=== PATIENT | male | born 1980 | race Hispanic/Latino ===

== ENCOUNTER 2019-12-16 20:14 | Emergency (ER) | payer SELFPAY ==
[~2019-12-16] VITALS: Ht 157.5 cm; Wt 74.8 kg
[2019-12-16 20:15] VITALS: BP 142/93
[2019-12-16] MEDS ORDERED: NS 1000ML 1,000 ML IV STA (20:31)
[2019-12-16] MEDS ORDERED: NS 1000ML 1,000 ML ONE (20:34)
--- NOTE | 2019-12-16 20:35 | ER.PDOC ---
General Chief Complaint: General Complaint Stated Complaint: DEHYDRATION TRAVEL OUT OF US: No Time seen by MD: 20:32 Source: patient Exam Limitations: no limitations History of Present Illness Initial Comments Generalized muscle cramps, patient has been working outside all day and barely drank water. No chest pain or SOB. Severity: moderate Associated Symptoms: denies symptoms Allergies: Coded Allergies: No Known Allergies (Unverified , 12/16/19) Past Medical History Medical History: no pertinent history Surgical History: no surgical history Social History Alcohol Use: none Drug Use: none Review of Systems Constitutional: no symptoms reported Respiratory: no symptoms reported Cardiovascular: no symptoms reported Gastrointestinal: no symptoms reported Musculoskeletal: see HPI All Other Systems: Reviewed and Negative Physical Exam General Appearance: No Apparent Distress, WD/WN Neck: Non-Tender, Full Range of Motion, Supple, Normal Inspection Respiratory: chest non-tender, lungs clear, normal breath sounds, no respiratory distress CVS: reg rate & rhythm, no murmur, no gallop, pulses nml, nml capillary refill Gastrointestinal: Normal Bowel Sounds, No Organomegaly, No Pulsatile Mass, Non Tender Back: Normal Inspection Extremities: Normal Range of Motion, Normal Inspection 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 Skin: Normal Color Results/Orders Results/Orders Orders - DOMINIK PATRICK MD Cbc With Auto Diff (12/16/19 20:29) Comprehensive Metabolic Panel (12/16/19 20:29) Creatine Kinase (12/16/19 20:29) 0.9 % Sodium Chloride (Ns 1000ml) (12/16/19 20:31) 0.9 % Sodium Chloride (Ns 1000ml) (12/16/19 20:34) Vital Signs Date Time Temp Pulse Resp B/P (MAP) Pulse Ox O2 Delivery O2 Flow Rate FiO2 12/16/19 20:15 98.7 84 16 94 12/16/19 20:15 98.7 84 16 142/93 (109) 94 Room Air 12/16/19 20:15 98.7 84 16 Administered Medications Medications (Trade) Dose Ordered Sig/Mouna Route PRN Reason Start Time Stop Time Status Last Admin Dose Admin Sodium Chloride 1,000 ml @ 1,200 mls/hr Q50M STAT IV 12/16/19 20:31 12/16/19 21:20 DC 12/16/19 20:45 1,200 MLS/HR Laboratory Tests Test 12/16/19 20:59 White Blood Count 11.4 10^3/uL (4.5-11.0) H Red Blood Count 4.90 10^6/uL (4.50-5.90) Hemoglobin 15.4 g/dL (13.9-16.3) Hematocrit 44.0 % (37.0-53.0) Mean Corpuscular Volume 89.8 fL (78-100) Mean Corpuscular Hemoglobin 31.4 pg (26-34) Mean Corpuscular Hemoglobin Concent 35.0 g/dL (33-36.5) Red Cell Distribution Width 12.3 % (11.5-14.5) Platelet Count 199 10^3/uL (150-400) Mean Platelet Volume 9.0 fL (7.8-11.0) Neutrophils (%) (Auto) 82.9 % (41.0-85.0) Lymphocytes (%) (Auto) 10.1 % (24.0-44.0) L Monocytes (%) (Auto) 6.3 % (5.0-12.0) Neutrophils # (Auto) 9.5 10^3/uL (1.8-7.7) H Lymphocytes # (Auto) 1.15 10^3/uL1 (1.0-4.8) Monocytes # (Auto) 0.7 10^3/uL (0.3-0.8) Absolute Immature Granulocyte (auto 0.02 10^3 u/L (0-2) Absolute Eosinophils (auto) 0.0 10^3/uL (0.0-0.2) Immature Granulocytes % 0.20 % (0.00-0.50) Eosinophils % 0.3 % (0.0-5.0) Basophils % 0.2 % (0.0-0.2) Basophils # 0.0 10^3/uL (0.0-0.1) Sodium Level 137 mmol/L (132-145) Potassium Level 3.2 mmol/L (3.6-5.2) L Chloride Level 103.0 mmol/L (96-109) Carbon Dioxide Level 21.3 mmol/L (20.0-32) Anion Gap 15.9 Blood Urea Nitrogen 20 mg/dL (7-18) H Creatinine 2.06 mg/dL (0.59-1.40) *H Estimated GFR () 43.7 (>/=60) Est GFR (CKD-EPI)(Non-Afr [place]) 36.1 (>/=60) BUN/Creatinine Ratio 9.0 Glucose Level 115 mg/dL (70-110) H Calcium Level 8.6 mg/dL (8.4-10.5) Total Bilirubin 0.3 mg/dL (0.2-1.0) Aspartate Amino Transferase (AST) 32 U/L (0-35) Alanine Aminotransferase (ALT) 63 U/L (12-78) Alkaline Phosphatase 119 U/L (50-136) Total Creatine Kinase 297 U/L (39-308) Total Protein 7.6 g/dL (6.4-8.2) Albumin 3.9 g/dL (3.4-5.0) Globulin 3.7 Progress Progress Patient received 2L of NS and is feeling better and back to normal. I wanted to observe him for more hydration but he refused. He promised to drink lots of fluids at home. Departure Time of Disposition: 21:54 Disposition: 01 HOME, SELF-CARE Impression: Primary Impression: Dehydration Additional Impressions: Acute kidney injury Heat exhaustion Condition: Improved Additional Instructions: Push fluids at home F/U with your PCP tomorrow Return to ED if worsening or concerns Duration or Time Spent with Pa: 45 min Problem Qualifiers Additional Impressions: Heat exhaustion Encounter type: initial encounter Qualified Codes: T67.5XXA - Heat exhaustion, unspecified, initial encounter DOMINIK PATRICK MD Dec 16, 2019 20:35
[2019-12-16 21:06] LABS: BASOPHIL % 0.2 % (0.0-0.2); EOSINOPHIL % 0.3 % (0.0-5.0); LYMPHOCYTES # 1.15 10^3/uL1 (1.0-4.8); LYMPHOCYTES % 10.1 % (24.0-44.0); MEAN CORP HGB 31.4 pg (26-34); MONOCYTES # 0.7 10^3/uL (0.3-0.8); MONOCYTES % 6.3 % (5.0-12.0); NEUTROPHIL # 9.5 10^3/uL (1.8-7.7); NEUTROPHILS % 82.9 % (41.0-85.0); PLATELET COUNT 199 10^3/uL (150-400); RED CELL DISTRIBUTION WIDTH 12.3 % (11.5-14.5)
[2019-12-16 21:24] LABS: CALCIUM 8.6 mg/dL (8.4-10.5); CARBON DIOXIDE 21.3 mmol/L (20.0-32)
== END 2019-12-16 22:10 | disposition home or self-care (01) ==
LOC: ER 20:14
DX: T67.5XXA Heat exhaustion, unspecified, initial encounter (principal); N17.9 Acute kidney failure, unspecified; E86.0 Dehydration; X32.XXXA Exposure to sunlight, initial encounter; Y93.89 Activity, other specified; Y92.89 Other specified places as the place of occurrence of the external cause; Y99.8 Other external cause status
CPT/HCPCS: 36415; 80053; 82550; 85025; 96360; 99283; J7030